=== PATIENT | female | born 1980 | race Caucasian/White ===

== ENCOUNTER 2021-09-10 10:47 | Emergency (ER) | payer MEDICAID ==
[~2021-09-10] VITALS: Ht 165.1 cm; Wt 109.0 kg
--- NOTE | 2021-09-10 10:50 | PHYS DOC ---
Adult General Chief Complaint Chief Complaint: CHEST PAIN HPI HPI Patient is a 40-year-old female presenting via EMS for cough. She reports she has been sick last few days has had numerous members of her household. She went to her primary care physician yesterday and had a rapid Covid test performed wh ich was negative and subsequently sent home with diagnosis of URI. Patient reportedly woke up today with ongoing nasal congestion, rhinorrhea, postnasal dri overall dry nonproductive cough but today started coughing up clear/yellow sputum. Ongoing symptoms concerned her prompting her to call EMS for transport to our facility. Patient denies any personal cardiac history, no history of passing out during sports, no prior blood clot or pulmonary embolism. She takes a baby aspirin a day otherwise no other anticoagulants, all medications have been at baseline with no recent changes. She is not vaccinated against COVID-19 Review of Systems Review of Systems Fourteen body systems of review of systems have been reviewed. See HPI for pertinent positives and negative responses, other tay all other systems are negative, non-pertinent or non-contributory Physical Exam Physical Exam General: Appears well, non toxic, and comfortable Skin: Warm, dry. Normal for ethnicity. HEENT: Atraumatic. PERRLA. Rhinorrhea and congestion. Nasal turbinates boggy b/l. Moist mucous membranes. Uvula midline. Maintaining secretions. No phonation changes. Neck: Trachea midline. Normal ROM. No stridor. Respiratory: Normal WOB. CTAB w/o w/r/r. No tachypnea. Cardiovascular: Regular rate and rhythm. Normal peripheral perfusion. Abdomen: Soft. Non tender. No distension. Back: Normal ROM. Musculoskeletal: No swelling or deformity. Neuro: Alert and oriented x 4. MAEE. Lymph: No cervical LAD. Psych: Anxious affect and mood Current Patient Data Vital Signs Vital Signs Date Time Temp Pulse Resp B/P (MAP) Pulse Ox O2 Delivery O2 Flow Rate FiO2 09/10/21 10:52 98.2 88 16 127/84 (98) 95 Vital Signs Date Time Temp Pulse Resp B/P (MAP) Pulse Ox O2 Delivery O2 Flow Rate FiO2 09/10/21 10:52 98.2 88 16 127/84 (98) 95 Lab Results Laboratory Tests Test 09/10/21 11:06 Coronavirus (COVID-19)(PCR) Not detected EKG EKG EKG ordered and interpreted by myself at 1121 hrs. as sinus rhythm at 79 bpm, unremarkable intervals, no axis deviation, no obvious ischemic findings, no STEM I Radiology/Procedures Radiology/Procedures XR CHEST 1V History: Reason: cough / Spl. Instructions: / History: Comparison: None. Findings: No consolidation or pleural effusion. Normal heart size. No pneumothorax. Impression: 1. No acute cardiopulmonary process. Electronically signed by: Marquez Russell DO (09/10/2021 11:59 AM) [id number] Heart Score C/O Chest Pain: No HEART Score for Chest Pain: HEART Score for Chest Pain Response (Comments) Value History Slighlty/Non-Suspicious 0 ECG Normal 0 Age < 45 0 Risk Factors 1 or 2 Risk Factors 1 Total 1 Risk Factors: Risk Factors: DM, Current or recent (<one month) smoker, HTN, HLP, family history of CAD, obesity. Risk Scores: Risk Factors: DM, Current or recent (<one month) smoker, HTN, HLP, family history of CAD, obesity. Course & Med Decision Making Course & Med Decision Making ABCs unremarkable HPI physical exam and comprehensive ER work-up nonconcerning for any emergent or surgical issues EKG and chest x-ray nonconcerning I discussed patient has viral URI as diagnosed by her primary care physician yesterday. She is requesting antibiotic. I discussed this is not indicated. She is upset I discussed need for continued supportive care practices at home and close outpatient follow-up as previously instructed. I disclose little indication for further diagnostic work-up and well-appearing hemodynamically stable patient Strict return precautions discussed and understood by patient, all questions and concerns addressed prior to ER departure Keila Disclaimer Keila Disclaimer This electronic medical record was generated, in whole or in part, using a voice recognition dictation system. Departure Departure: Impression: Primary Impression: Viral syndrome Additional Impression: Person under investigation for COVID-19 Disposition: HOME / SELF CARE / HOMELESS Condition: STABLE Additional Instructions: You were seen for headache, fever, body aches, and possible infection with COVID-19. Your physical exam was reassuring. Your chest x-ray was normal. We tested you for COVID-19 but this test does not come back for 1 to 2 days. In the meantime you need to quarantine yourself at home away from all other individuals, especially those who are elderly or have any other chronic health issues or an immunocompromised status. You should return to the ED if you develop worsening cough, shortness of breath, chest pain, or any other new or concerning symptoms. Alternate Tylenol and ibuprofen as needed for body aches and pain. If your test does come back positive you need to quarantine yourself for 10 days until symptom-free. You should make sure to drink plenty of fluids and get plenty of rest. Problem Qualifiers FELICITAS LANDEROS DO Sep 10, 2021 10:50
[2021-09-10 10:52] VITALS: BP 127/84
--- NOTE | 2021-09-10 11:57 | EKG ---
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
--- NOTE | 2021-09-10 12:02 | RAD ---
XR CHEST 1V History: Reason: cough / Spl. Instructions: / History: Comparison: None. Findings: No consolidation or pleural effusion. Normal heart size. No pneumothorax. Impression: 1. No acute cardiopulmonary process. Electronically signed by: Marquez Russell DO (09/10/2021 11:59 AM) [id number]
== END 2021-09-10 12:29 | disposition home or self-care (01) ==
LOC: ER 10:47
DX: B34.9 Viral infection, unspecified (principal); Z20.822 Contact with and (suspected) exposure to COVID-19
CPT/HCPCS: 71045; 93005; 99285; C9803; U0003

== ENCOUNTER 2021-09-21 13:42 | Emergency (ER) | payer MEDICAID ==
[~2021-09-21] VITALS: Ht 165.1 cm; Wt 109.0 kg
[2021-09-21 14:01] VITALS: BP 133/74
[2021-09-21] MEDS ORDERED: CARB-174 EACH EAR (14:37)
[2021-09-21] MEDS ORDERED: CEFD300C PO (14:37)
--- NOTE | 2021-09-21 14:42 | PHYS DOC ---
Past History Past Surgical History: No Surgical History Alcohol Use: None General Adult EDM: Chief Complaint: EARACHE/EAR PAIN HPI: HPI: 41-year-old female past medical history hypertension, GERD, obesity, anxiety and depression, presents to the ED with complaints of forehead and nasal sinus pressure with associated headache and left ear fullness stating symptoms have been present since her last ED visit. EMR was reviewed and patient was seen on September 11 for nasal congestion, rhinorrhea and cough, impression was PUI and viral syndrome. Covid resulted negative. States history of prior of a sinus infection 2 to 3 months ago. Urticaria with penicillin. States doxycycline did not work last time. No associated ear drainage. No associated head or neck trauma. Review of Systems: Review of Systems: Constitutional: Denies fever or chills Eyes: Denies change in visual acuity HENT: Denies nasal congestion or sore throat Respiratory: Denies cough or shortness of breath Cardiovascular: Denies chest pain or edema GI: Denies abdominal pain, nausea, vomiting, bloody stools or diarrhea : Denies dysuria or vaginal bleeding Musculoskeletal: Denies back pain or joint pain Integument: Denies rash or diaphoresis Neurologic: Denies neck stiffness, focal weakness or sensory changes Endocrine: Denies polyuria or polydipsia Lymphatic: Denies swollen glands Psychiatric: Denies depression or anxiety Allergies: Allergies: Allergies Coded Allergies Type Severity Reaction Last Updated Verified Penicillins Allergy Unknown 09/10/21 Yes buspirone Allergy Unknown 09/10/21 Yes hydroxyzine Allergy Unknown 09/10/21 Yes Uncoded Allergies Type Severity Reaction Last Updated Verified SULFA Allergy Unknown 09/10/21 Physical Exam: PE: Constitutional: Well developed, well nourished, no acute distress, non-toxic appearance. HENT: Normocephalic, atraumatic, + frontal and maxillary sinus tenderness with fullness leaning forward, right ear with cerumen, left ear with pearly white membranes with no effusion, moist mucous membranes with no pharyngeal erythema or exudates Eyes: PERRLA, EOMI, conjunctiva normal, no discharge. Neck: Normal range of motion, supple, no nuchal rigidity or meningismus Cardiovascular: S1/2 present, regular rhythm Lungs & Thorax: Speaking in full sentences, bilateral equal chest rise, no tachypnea or increased work of breathing Skin: Warm, dry, no erythema, no rash. [] Extremities: No tenderness, no cyanosis, Neurologic: cn 2-12 intact, Alert and oriented X 3, normal motor function, normal sensory function, no focal deficits noted. [] Psychologic: Affect normal, judgement normal, mood normal. [] Current Patient Data: Vital Signs: Vital Signs Date Time Temp Pulse Resp B/P (MAP) Pulse Ox O2 Delivery O2 Flow Rate FiO2 09/21/21 14:01 97.3 78 16 133/74 (93) 98 Room Air EKG: EKG: [] Radiology/Procedures: Radiology/Procedures: [] Heart Score: C/O Chest Pain: No Risk Factors: Risk Factors: DM, Current or recent (<one month) smoker, HTN, HLP, family history of CAD, obesity. Risk Scores: Score 0 - 3: 2.5% MACE over next 6 weeks - Discharge Home Score 4 - 6: 20.3% MACE over next 6 weeks - Admit for Clinical Observation Score 7 - 10: 72.7% MACE over next 6 weeks - Early Invasive Strategies Course & Med Decision Making: Course & Med Decision Making Pertinent Labs and Imaging studies reviewed. (See chart for details) Concern for acute sinusitis and hemodynamically stable female. Incidental finding of right cerumen impaction. Left ear exam unremarkable. Given prior failed history of doxycycline and penicillin allergy, will prescribe cefdinir. I also recommended pfus-rim-fiofnig [place] pot/sinus rinses. I discouraged pseudoephedrine given history of hypertension, " my daughter told me that could be an issue." We will also prescribe Debrox. Will discharge home with strict ED return precautions were given for fever, neck stiffness, severe headache or n eurologic deficits. Encouraged urgent outpatient follow-up with PMD for routine care and ENT for definitive management. Life-threatening processes were considered but are low suspicion at this time, given history, physical exam and ED workup. Pt was educated on all prescription medications and adverse effects. All patient's questions were answered and pt was stable at time of discharge. Life/limb-threatening differential includes but is not limited to, meningitis, encephalitis, intracranial hemorrhage, obstructive hydrocephaly, CVA, carbon monoxide poisoning, cerebral or cavernous venous thrombosis, hypertensive emergency, preeclampsia, giant cell arteritis, glaucoma, carotid or vertebral artery dissection, superior vena cava syndrome, infection, optic neuritis, or space-occupying lesions. I have spoken with the patient and/or caregivers. I explained the patient's condition, diagnoses and treatment plan based on the information available to me at this time. I have answered the patient and/or caregiver's questions and addressed any concerns. The patient and/or caregivers have a good understanding of patient's diagnosis, condition and treatment plan as can be expected at this point. Vital signs have been stable. Patient's condition is stable and appropriate for discharge from the emergency department. Patient will pursue further outpatient evaluation with primary care physician or other designated or consulting physician as outlined in the discharge instructions. The patient and/or caregivers are agreeable to this plan of care and follow-up instructions have been explained in detail. The patient and/or caregivers have received these instructions in written form and have expressed an understanding of the discharge instructions. The patient and/or caregivers are aware that any significant change of condition or worsening of symptoms should prompt immediate return to this or the closest emergency department or call to 1. Keila Disclaimer: Keila Disclaimer: This electronic medical record was generated, in whole or in part, using a voice recognition dictation system. Departure Departure: Impression: Primary Impression: Acute sinusitis Additional Impression: Impacted cerumen, right ear Disposition: 01 HOME / SELF CARE / HOMELESS Condition: STABLE Referrals: PCP,NO (PCP) Follow-up with your primary care physician in 24 to 48 hours OR FOLLOW UP WITH FAMILY MEDICINE: [address] [facility], [address] [place] [address] Patient Instructions: Cerumen Impaction, Sinusitis Additional Instructions: FOLLOW UP WITH ENT: FOR DEFINITIVE MANAGEMENT of sinusitis and cerumen impaction Otolaryngology [address], [address] [place] [address] marketing program coordinator [facility] [address] [place] [id number] EMERGENCY DEPARTMENT GENERAL DISCHARGE INSTRUCTIONS Thank you for coming to [facility] (ED) today and trusting us with you care. We trust that you had a positivie experience in our Emergency Department. If you wish to speak to the department management, you may call the director at [phone]. YOUR FOLLOW UP INSTRUCTIONS ARE FOLLOWS: 1. Do you have a private Doctor? If you do not have a private doctor, please ask for a resource list of physicians or clinics that may be able to assist you with follow up care. 2. The Emergency Physician has interpreted your x-rays. The X-Ray specialist will also review them. If there is a change in the findings, you will be notified in 48 hours when at all possible. 3. A lab test or culture has been done, your results will be reviewed and you will be notified if you need a change in treatment. ADDITIONAL INSTRUCTIONS AND INFORMATION: 1. Your care today has been supervised by a physician who is specially trained in emergency care. Many problems require more than one evaluation for a complete diagnosis and treatment. We recommend that you schedule your follow up appointment as recommended to ensure complete treatment of you illness or injury. If you are unable to obtain follow up care and continue to have a problem, or if your condition worsens, we recommend that you return to the ED. 2. We are not able to safely determine your condition over the phone nor are we able to give sound medical advice over the phone. For these safety reasons, if you call for medical advice we will ask you to come to the ED for further evaluation. 3. If you have any questions regarding these discharge instructions please call the ED at [phone]. SAFETY INFORMATION: In the interest of safety, wellness, and injury prevention; we encourage you to wear your sealbelt, if you smoke; quite smoking, and we encourage family to use a protective helmet for bicycling and other sporting events that present an increased risk for head injury. IF YOUR SYMPTOMS WORSEN OR NEW SYMPTOMS DEVELOP, OR YOU HAVE CONCERNS ABOUT YOUR CONDITION; OR IF YOUR CONDITION WORSENS WHILE YOU ARE WAITING FOR YOUR FOLLOW UP APPOINTMENT; EITHER CONTACT YOUR PRIMARY CARE DOCTOR, THE PHYSICIAN WHOSE NAME AND NUMBER YOU WERE GIVEN, OR RETURN TO THE ED IMMEDIATELY. Scripts Cefdinir (CEFDINIR) 300 Mg Capsule 1 CAP PO BID for sinusitis for 14 Days, #28 CAP Prov: EMMANUEL KEYES DO 09/21/21 Carbamide Peroxide (EAR WAX REMOVAL) 15 Ml Drops 5 DROP EACH EAR DAILY for cerumen impaction for 7 Days, #1 BOTTLE 0 Refills Prov: EMMANUEL KEYES DO 09/21/21 EMMANUEL KEYES DO Sep 21, 2021 14:42
== END 2021-09-21 14:56 | disposition home or self-care (01) ==
LOC: ER 13:42
DX: J01.90 Acute sinusitis, unspecified (principal); H61.21 Impacted cerumen, right ear; I10 Essential (primary) hypertension; K21.9 Gastro-esophageal reflux disease without esophagitis; F41.9 Anxiety disorder, unspecified; F32.9 Major depressive disorder, single episode, unspecified; E66.9 Obesity, unspecified; Z68.41 Body mass index [BMI] 40.0-44.9, adult; Z88.0 Allergy status to penicillin; Z88.8 Allergy status to other drugs, medicaments and biological substances
CPT/HCPCS: 99283